=== PATIENT | female | born 1945 | race Caucasian/White ===

== ENCOUNTER 2017-08-14 09:27 | Emergency (ER) | payer MEDICARE, OTHER ==
[2017-08-14 09:40] VITALS: BP 155/90
[2017-08-14] MEDS ORDERED: Tetan/Diph/Pertus SYR(Tdap)* 0.5 ML SYR(BOOSTRIX) use SYR IM ONE (09:52)
--- NOTE | 2017-08-14 09:52 | ED ---
Skin Complaint - HPI Summary HPI Summary: 72 Y/O female presents with C/O L hand pain and swelling x 4 days after hitting it on the wall and a puncture wound from a nail. Today presents with swelling to top of hand and soreness. Wound on palm healing well without redness or exudate. Tetanus is not current and she will receive today. Denies cardiac or other significant medical or medication history. Blood pressure is elevated at this visit without history of HTN, most likely due to pain. - History of Current Complaint Chief Complaint: UCUpperExtremity Time Seen by Provider: 08/14/17 09:43 Stated Complaint: HAND PAIN Hx Obtained From: Patient Onset/Duration: Started Days Ago Skin Exposure Onset/Duration: Days Ago Timing: Constant Onset Severity: Mild Current Severity: Moderate Pain Intensity: 7 Pain Scale Used: 0-10 Numeric Skin Location: Diffuse Character: Swelling, Pain Aggravating Symptom(s): Nothing Alleviating Symptom(s): Nothing Associated Signs & Symptoms: Bruising Related History: Trauma - Allergy/Home Medications Allergies/Adverse Reactions: Allergies Allergy/AdvReac Type Severity Reaction Status Date / Time Sulfa (Sulfonamide Allergy Mild Itching Verified 08/14/17 09:40 Antibiotics) Home Medications: Home Medications Ibuprofen TAB* [Advil TAB*] 1 tab PO Q6HR PRN 08/14/17 [History Confirmed ] Multivitamin [Multiple Vitamins] 1 tab PO DAILY 08/14/17 [History Confirmed 04/21] PMH/Surg Hx/FS Hx/Imm Hx Previously Healthy: Yes - Cancer History Hx Chemotherapy: No Hx Radiation Therapy: No Infectious Disease History: No Infectious Disease History: Denies: Traveled Outside the [place] in Last 30 Days - Social History Alcohol Use: None Substance Use Type: Reports: None Smoking Status (MU): Never Smoked Tobacco Review of Systems Constitutional: Negative Eyes: Negative ENT: Negative Cardiovascular: Negative Respiratory: Negative Gastrointestinal: Negative Genitourinary: Negative Musculoskeletal: Negative Positive: Bruising Neurological: Negative Psychological: Normal All Other Systems Reviewed And Are Negative: Yes Physical Exam Triage Information Reviewed: Yes Vital Signs On Initial Exam: Initial Vitals Temp Pulse Resp BP Pulse Ox 99.3 F 97 20 155/90 96 08/14/17 09:34 08/14/17 09:34 08/14/17 09:34 08/14/17 09:34 08/14/17 09:34 Vital Signs Reviewed: Yes Appearance: Positive: Well-Appearing Skin: Positive: Warm Head/Face: Positive: Normal Head/Face Inspection Respiratory/Lung Sounds: Positive: Clear to Auscultation Cardiovascular: Positive: Normal Musculoskeletal: Positive: Normal Neurological: Positive: Normal Psychiatric: Positive: Normal Diagnostics - Vital Signs Vital Signs Temp Pulse Resp BP Pulse Ox 08/14/17 09:34 99.3 F 97 20 155/90 96 - Laboratory Lab Statement: Any lab studies that have been ordered have been reviewed, and results considered in the medical decision making process. Course/Dx - Differential Diagnoses - Skin Complaint Differential Diagnoses: Other - contusion - Diagnoses Provider Diagnoses: Contusion Discharge - Discharge Plan Condition: Stable Disposition: HOME Patient Education Materials: Contusion in Adults (ED) Referrals: Tracey Humphrey MD [Primary Care Provider] - Additional Instructions: Your hand x ray was negative for fracture or other acute changes. If symptoms do not improve over the next several days please return to urgent care or follow up with your primary medical provider. Elevate your arm and apply ice for several minutes at a time for pain and swelling.
--- NOTE | 2017-08-14 10:26 | RAD ---
INDICATION: Puncture wound with nail on Wednesday. Proximal medial anterior palm of hand. Now swollen and warm. COMPARISON: No relevant prior exams available on the [facility] PACS for comparison. TECHNIQUE: AP, lateral, and oblique views LEFT hand. REPORT AND IMPRESSION: Volar soft tissue swelling. No subcutaneous emphysema or conspicuous foreign body. Negative for fracture or malalignment. 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
== END 2017-08-14 11:02 | disposition home or self-care (01) ==
LOC: UCEAST 09:27
DX: S60.222A Contusion of left hand, initial encounter (principal); W22.09XA Striking against other stationary object, initial encounter; Y93.9 Activity, unspecified; Y92.9 Unspecified place or not applicable; Z23 Encounter for immunization; Z88.2 Allergy status to sulfonamides
CPT/HCPCS: 90471; 90715; 99211; G0463

== ENCOUNTER 2017-10-13 17:33 | Emergency (ER) | payer MEDICARE, OTHER ==
[2017-10-13] MEDS ORDERED: NS 0.9% 1000 ML* 1,000 ML IV ONE (18:32)
[2017-10-13 18:55] LABS: ABS Basophils 0.1 10^3/ul (0-0.2); ABS Eosinophils 0 10^3/ul (0-0.6); ABS Lymphocytes 1.4 10^3/ul (1.0-4.8); ABS Monocytes 0.4 10^3/ul (0-0.8); ABS Neutrophils 3.4 10^3/ul (1.5-7.7); ABS Nucleated RBC 0 10^3/ul; Eosinophil % 0.3 % (0-6); Hematocrit 43 % (35-47); Mean Corpuscular HGB Conc 35 g/dl (31-36); Mean Corpuscular Hemoglobin 30 pg (27-31); Mean Corpuscular Volume 85 fL (80-97); Mean Platelet Volume 8.6 um3 (7.4-10.4); Nucleated Red Blood Cells % 0; Platelet Count 199 10^3/ul (150-450); Red Blood Count 5.01 10^6/ul (4.0-5.4); Red Cell Distribution Width 14 % (10.5-15); White Blood Count 5.3 10^3/ul (3.5-10.8)
[2017-10-13 19:04] LABS: INR 0.94 (0.77-1.02)
[2017-10-13 19:13] LABS: EGFR Non-African American 106.1 (>60)
--- NOTE | 2017-10-13 19:14 | RAD ---
Indication: Cough. Comparison: January 15, 2015 Technique: Upright AP 1902 hours Report: Elevated lung volumes and both diffuse mild prominence of the interstitial markings and patchy rarefaction of the mid to upper lung zone interstitial markings. No focal pulmonary lesion, compelling alveolar consolidation, pleural effusion, pneumothorax. Negative for cardiomegaly. Unremarkable central pulmonary vasculature. Moderately tortuous descending thoracic aorta. IMPRESSION: Stigmata of obstructive lung disease. No acute pulmonary or cardiac process evident.
[2017-10-13] MEDS ORDERED: Iohexol 350* (CONTRAST) 500 ML MDV IV ONE (19:26)
[2017-10-13 19:35] LABS: Urine Appearance Clear; Urine Blood Negative (Negative); Urine Color Straw; Urine Ketones Negative (Negative); Urine Protein Negative (Negative); Urine Specific Gravity 1.003 (1.010-1.030); Urine Urobilinogen Negative (Negative)
--- NOTE | 2017-10-13 20:24 | RAD ---
Indication: Transient memory lapse today at 1300 hours Comparison: No relevant prior exams available on the [facility] PACS for comparison. Technique: Noncontrast CT vertex of skull through foramen magnum. Report: The sulci, ventricles, and basal cisterns are normal for age. Saeed matter white matter differentiation is preserved without evidence for edema. Decreased density in the periventricular and subcortical white matter while non-specific is most likely due to chronic microangiopathy. No intra or extra axial hemorrhage, mass, or fluid collection detected. Unremarkable visualized orbital contents. Unremarkable calvarium and skull base. Unremarkable scalp. The visualized paranasal sinuses and mastoid air spaces are clear. IMPRESSION: 1. No acute intracranial process evident. 2. Stigmata of probable mild chronic small vessel ischemic disease.
--- NOTE | 2017-10-13 20:37 | RAD ---
INDICATION: Transient memory lapse. COMPARISON: Head CT of the same date. TECHNIQUE: Multidetector CT images were obtained from the aortic arch to the vertex of the head with 80 mL Omnipaque 350 IV contrast. Arterial phase of enhancement. Multiplanar reformation including maximum intensity projection. 3-D arterial volume rendering. Stenosis estimations based on denominator of distal arterial diameter. NECK ANGIOGRAM REPORT: Normal configuration of the branch vessels at the aortic arch. Negative for ostial stenosis of the branch vessels. Tortuous common carotid arteries. Negative for RIGHT or LEFT internal carotid artery stenosis. Patent LEFT dominant and diminutive RIGHT vertebral arteries with both vertebral arteries contributing to the basilar artery. Negative for arterial dissection. Patent dominant RIGHT and smaller LEFT internal jugular veins. NECK ANGIOGRAM IMPRESSION: Negative for carotid or vertebral artery stenosis, occlusion, or dissection. HEAD ANGIOGRAM REPORT: Minimal calcific plaque at the RIGHT carotid siphon. No significant stenosis of the intracranial internal carotid arteries, M1 or M2 middle cerebral arteries, A1 or A2 anterior cerebral arteries. Small patent anterior communicating artery visualized. Unremarkable basilar artery and cerebellar artery origins. Patent bilateral posterior cerebral arteries with supply from both the posterior circulation and anterior circulation via posterior communicating arteries. No visualized intracranial aneurysm or vascular malformation. Normal opacification of the dural venous sinuses. Multilevel cervical degenerative spondylosis and facet joint osteoarthritis. No significant central canal stenosis evident at any level. Uncinate process spurring results in multilevel osseous foraminal stenosis from C3-C4 through C6-C7. HEAD ANGIOGRAM IMPRESSION: Normal variation without significant pathologic finding of the dominant intracranial arterial vasculature. CPT II: CPT II Codes: 3100F
[2017-10-13 21:16] VITALS: BP 141/86
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
== END 2017-10-13 21:18 | disposition home or self-care (01) ==
LOC: ED 17:33
DX: R03.0 Elevated blood-pressure reading, without diagnosis of hypertension (principal); R41.3 Other amnesia; R55 Syncope and collapse; R41.0 Disorientation, unspecified; Z87.891 Personal history of nicotine dependence
CPT/HCPCS: 36415; 70450; 70496; 70498; 71045; 80053; 81003; 81015; 82375; 82550; 82553; 83605; 83690; 83735; 83880; 84443; 84484; 85025; 85379; 85610; 85730; 86140; 87086; 93005; 99283; Q9967

== ENCOUNTER 2019-01-29 10:26 | Emergency (ER) | payer MEDICARE, OTHER ==
[2019-01-29 11:22] VITALS: BP 141/71
[2019-01-29] MEDS ORDERED: cefTRIAXone VIAL(*) 1,000 MG VIAL IM ONE (11:36)
[2019-01-29] MEDS ORDERED: Lidocaine 1% MPF* 2 ML VIAL INJ ONE (11:36)
--- NOTE | 2019-01-29 11:43 | UC ---
Upper Extremity HPI - HPI Summary HPI Summary: Patient started noticing pain and swelling in the right wrist yesterday. it became warm and red, now it is more painful and redness is all around the wrist. no trauma, no open areas noted - History of Current Complaint Chief Complaint: UCUpperExtremity Stated Complaint: R HAND/WRIST PAIN AND SWOLLEN Time Seen by Provider: 01/29/19 11:15 Hx Obtained From: Patient ?: No Onset/Duration: Sudden Onset, Lasting Days - 2 Severity Initially: Severe Severity Currently: Severe Pain Intensity: 7 Aggravating Factor(s): Movement Associated Signs And Symptoms: Positive: Swelling, Redness, Weakness Related History: Dominant Hand Right - Allergies/Home Medications Allergies/Adverse Reactions: Allergies Allergy/AdvReac Type Severity Reaction Status Date / Time Sulfa (Sulfonamide Allergy Mild Itching Verified 01/29/19 11:22 Antibiotics) PMH/Surg Hx/FS Hx/Imm Hx Previously Healthy: Yes - Surgical History Surgical History: None - Family History Known Family History: Negative: Cardiac Disease - Social History Alcohol Use: None Substance Use Type: None Smoking Status (MU): Former Smoker - Immunization History Most Recent Tetanus Shot: >10 years ago Review of Systems All Other Systems Reviewed And Are Negative: Yes Skin: Positive: Other - erythema Musculoskeletal: Positive: Arthralgia, Decreased ROM, Edema, Myalgia Physical Exam Triage Information Reviewed: Yes Appearance: Well-Appearing, Well-Nourished, Pain Distress Vital Signs: Initial Vital Signs Temp 98.4 F 01/29/19 11:16 Pulse 97 01/29/19 11:16 Resp 16 01/29/19 11:16 BP 141/71 01/29/19 11:16 Pulse Ox 100 01/29/19 11:16 Vital Signs Reviewed: Yes Eye Exam: Normal ENT Exam: Normal Dental Exam: Normal Neck exam: Normal Respiratory Exam: Normal Cardiovascular Exam: Normal Abdominal Exam: Normal Musculoskeletal: Positive: Strength Limited @ - hard to make a fist, ROM Limited @ - in fingers and wrist due to swelling, Edema @ - generalized swelling of the right wrist and distal forearm Neurological Exam: Normal Psychological Exam: Normal Skin: Positive: Other - erythema Upper Extremity Course/Dx - Course Course Of Treatment: hx obtained, exam performed ,meds reviewed, IM injection of rochepin given and keflex prescribed. recommend follow up in 2 days if not significant improvement - Differential Dx/Diagnosis Differential Diagnosis/HQI/PQRI: Strain, Sprain, Other - gout Provider Diagnosis: Cellulitis of right wrist Discharge - Sign-Out/Discharge Documenting (check all that apply): Patient Departure All imaging exams completed and their final reports reviewed: No Studies - Discharge Plan Condition: Stable Disposition: HOME Prescriptions: Cephalexin CAP* [Keflex CAP*] 500 mg PO TID #21 cap Patient Education Materials: Cellulitis (ED) Referrals: Tracey Humphrey MD [Primary Care Provider] - Additional Instructions: 1. take the medication as prescribed. 2. today do 2 doses and then start the 3 doses per day tomorrow 3. Follow up in 2 days if you do not see improvement, 4. If you develop a fever or flu like feelings please report to ER. - Billing Disposition and Condition Condition: STABLE Disposition: Home
== END 2019-01-29 12:05 | disposition home or self-care (01) ==
LOC: UCCORT 10:26
DX: L03.113 Cellulitis of right upper limb (principal); Z88.2 Allergy status to sulfonamides; Z87.891 Personal history of nicotine dependence
CPT/HCPCS: 96372; 99212; G0463; J0696